=== PATIENT | male | born 1970 | race African-American/Black ===

== ENCOUNTER 2019-08-03 19:12 | Emergency (ER) | payer BC, OTHER | END 2019-08-03 21:16 | disposition home or self-care (01) | LOC: ERS 19:12 | DX: E11.65 Type 2 diabetes mellitus with hyperglycemia (principal); Z91.19 Patient's noncompliance with other medical treatment and regimen; E78.5 Hyperlipidemia, unspecified; E78.00 Pure hypercholesterolemia, unspecified; I10 Essential (primary) hypertension; F43.10 Post-traumatic stress disorder, unspecified | CPT/HCPCS: 36416; 99284 ==

== ENCOUNTER 2023-11-30 09:41 | Observation (INO) | payer OTHER ==
[2023-11-30] MEDS ORDERED: Ketorolac Tromethamine 30 MG (1 mL) VIAL ONE (10:30)
[2023-11-30] MEDS ORDERED: Iopamidol-370 76% 500 ML MDV (1 ML CHARGE) ONE (10:34)
[2023-11-30 10:46] LABS: #Basophils 0.03 10x3/uL (0.0-0.2); %Basophils 0.3 % (0.0-1.0); %Eosinophils 2.5 % (0.0-10.0); %Lymphocytes 19.2 % (21.0-51.0); %Monocytes 7.5 % (0.0-10.0); %Neutrophils 69.9 % (42.0-75.0); Hematocrit 50.4 % (42.0-52.0); Hemoglobin 16.7 g/dL (14.0-18.0); Mean Corpuscular HGB CONC 33.1 g/dL (32.0-36.0); Mean Corpuscular Hemoglobin 28.9 pg (27.0-31.0); Mean Corpuscular Volume 87.3 fL (78.0-98.0); Mean Platelet Volume 9.9 fL (7.4-10.4); Platelet Count 239 10x3/uL (130-400); RBC Distribution Width 14.2 % (11.5-14.5); Red Blood Cell (RBC) Count 5.77 mill/uL (4.70-6.10)
[2023-11-30 11:29] LABS: ALT (SGPT) 57 U/L (8-55); AST (SGOT) 21 U/L (5-34); Albumin 4.1 g/dL (3.5-5.0); Alkaline Phosphatase 114 U/L (40-110); Anion Gap 14 mmol/L (10-20); BUN (Urea Nitrogen) 14 mg/dL (8.4-25.7); Bilirubin, Total 0.5 mg/dL (0.2-1.2); Calc. Creatinine Clearance 0 mL/min (70-130); Calcium 9.5 mg/dL (7.8-10.44); Carbon Dioxide 23 mmol/L (22-29); Chloride 105 mmol/L (98-107); Estimated GFR 91; Globulin 3.1 g/dL (2.4-3.5); Glucose 167 mg/dL (70-105); Potassium 4.3 mmol/L (3.5-5.1); Protein, Total 7.2 g/dL (6.0-8.3); Sodium 138 mmol/L (136-145)
[2023-11-30] MEDS ORDERED: Ampicillin/Sulbactam 3 GM VIAL ONE (12:27)
[2023-11-30] MEDS ORDERED: Dexamethasone 10 MG/ML VIAL ONE (12:27)
[2023-11-30] MEDS ORDERED: Sodium Chloride 0.9% 100 ML ONE (12:27)
[2023-11-30] MEDS ORDERED: Sodium Chloride 0.65% Nasal 44 ML BOT EA NARE PRN (18:54)
[2023-11-30] MEDS ORDERED: Acetaminophen 650 MG Suppository PR PRN (18:54)
[2023-11-30] MEDS ORDERED: Ondansetron ODT 4 MG TAB PO PRN (18:54)
[2023-11-30] MEDS ORDERED: HYDROcodone/Acetaminophen 5/325 mg Tablet PO PRN (18:54)
[2023-11-30] MEDS ORDERED: Ondansetron PF 4 MG/2 ML Vial IVP PRN (18:54)
[2023-11-30] MEDS ORDERED: Acetaminophen 325 MG TAB PO PRN (18:54)
[2023-11-30] MEDS ORDERED: Artificial Tear Sol 15 ML BOT EA EYE PRN (18:54)
[2023-11-30] MEDS ORDERED: Moisturizing Cream (Eucerin) 113 GM JAR TOP PRN (18:54)
[2023-11-30] MEDS ORDERED: Dextrose 50% Abboject 50 ML SYRINGE SLOW IVP PRN (18:56)
[2023-11-30] MEDS ORDERED: HumaLOG 300 UNITS/3 ML VIAL SC PRN (18:56)
[2023-11-30] MEDS ORDERED: Dextrose 5% in Water 1,000 ML IV PRN (18:56)
[2023-11-30] MEDS ORDERED: Glucagon 1 MG/ML KIT IM PRN (18:56)
[2023-11-30 19:57] LABS: MONO NEGATIVE CONTROL ZONE White (Negative) (White); MONO POSITIVE CONTROL Pink Line (Positive) (PINK/RED); Mononucleosis NEGATIVE (NEGATIVE)
[2023-11-30] MEDS: Famotidine 20 MG TAB PO SCH (20:41)
[2023-11-30] MEDS: Famotidine/PF 20 mg/2ml Vial SLOW IVP SCH (20:42)
[2023-11-30 21:02] VITALS: BMI 29.8
[2023-11-30] MEDS: Ampicillin/Sulbactam 3 GM in Sodium Chloride 0.9% 100 ML IVPB SCH (21:43)
[2023-11-30] MEDS: HumaLOG 300 UNITS/3 ML VIAL SC PRN (22:20)
[2023-11-30] MEDS: Ketorolac Tromethamine 30 MG (1 mL) VIAL IVP SCH (23:15)
[2023-11-30] MEDS: Prazosin HCl 1 MG CAP PO SCH (23:15)
[2023-12-01 04:51] LABS: #Basophils Less than 0.03 10x3/uL (0.0-0.2); %Basophils 0.2 % (0.0-1.0); %Eosinophils 0.3 % (0.0-10.0); %Lymphocytes 13.5 % (21.0-51.0); %Monocytes 7.1 % (0.0-10.0); %Neutrophils 78.2 % (42.0-75.0); Hematocrit 43.3 % (42.0-52.0); Hemoglobin 13.9 g/dL (14.0-18.0); Mean Corpuscular HGB CONC 32.1 g/dL (32.0-36.0); Mean Corpuscular Hemoglobin 27.9 pg (27.0-31.0); Mean Corpuscular Volume 86.8 fL (78.0-98.0); Mean Platelet Volume 10.2 fL (7.4-10.4); Platelet Count 210 10x3/uL (130-400); RBC Distribution Width 14.1 % (11.5-14.5); Red Blood Cell (RBC) Count 4.99 mill/uL (4.70-6.10)
[2023-12-01 05:10] LABS: Anion Gap 12 mmol/L (10-20); BUN (Urea Nitrogen) 18 mg/dL (8.4-25.7); Calc. Creatinine Clearance 123 mL/min (70-130); Calcium 9.2 mg/dL (7.8-10.44); Carbon Dioxide 22 mmol/L (22-29); Chloride 105 mmol/L (98-107); Estimated GFR 102; Glucose 202 mg/dL (70-105); Potassium 4.1 mmol/L (3.5-5.1); Sodium 135 mmol/L (136-145)
[2023-12-01] MEDS: Dexamethasone 10 MG/ML VIAL SLOW IVP SCH (09:50)
[2023-12-01] MEDS: Prazosin HCl 1 MG CAP PO SCH (09:54)
[2023-12-01] MEDS ORDERED: hydrOXYzine 25 MG TAB PO PRN ×2 (10:36→10:45)
[2023-12-01] MEDS: HumaLOG 300 UNITS/3 ML VIAL SC PRN (10:53)
[2023-12-01 12:11] VITALS: BP 156/76; TEMP 97.7
[2023-12-01] MEDS ORDERED: Atorvastatin Calcium 40 MG TAB PO SCH (21:00)
[2023-12-02] MEDS ORDERED: Non-Formulary Item 1 EACH (Atorvastatin Calcium [Lipitor] 80 MG Tablet) PO SCH (09:00)
[2023-12-02] MEDS ORDERED: Lisinopril 10 MG TAB PO SCH ×2 (09:00)
[2023-12-02] MEDS ORDERED: Insulin Glargine 30 UNITS/0.3 ML VIAL SC SCH (09:00)
== END 2023-12-01 16:35 | disposition home or self-care (01) ==
LOC: ERS 09:41 → MSONC 17:14
PROVIDERS: ADMIT Family Medicine; ATTEND Hospitalist
DX: J36 Peritonsillar abscess (principal); I10 Essential (primary) hypertension; E11.9 Type 2 diabetes mellitus without complications; Z79.4 Long term (current) use of insulin; Z79.899 Other long term (current) drug therapy
CPT/HCPCS: 36415; 36416; 70491; 80048; 80053; 85025; 86141; 86308; 87081; 87430; 96365; 96366; 96375; 96376; G0378; J0295; J1100; J1815; J1885; J3490; Q9967